=== PATIENT | female | born 1950 | race Caucasian/White ===

== ENCOUNTER → 2017-01-22 | Outpatient (CLI) | payer OTHER | LOC: FIMAGING 14:21 | PROVIDERS: ATTEND Internal Medicine | DX: M81.0 Age-related osteoporosis without current pathological fracture (principal) ==

== ENCOUNTER → 2017-02-19 | Outpatient (CLI) | payer OTHER | LOC: BMCIMAGING 14:55 | PROVIDERS: ATTEND Internal Medicine Endocrinology, Diabetes & Metabolism | DX: E04.1 Nontoxic single thyroid nodule (principal); E21.3 Hyperparathyroidism, unspecified | CPT/HCPCS: 76536-PO ==

== ENCOUNTER → 2017-03-04 | Outpatient (CLI) | payer OTHER | LOC: FIMAGING 11:55 | PROVIDERS: ATTEND Internal Medicine Endocrinology, Diabetes & Metabolism | DX: E21.3 Hyperparathyroidism, unspecified (principal) | CPT/HCPCS: 78070; A9500 ==

== ENCOUNTER → 2017-05-11 | Outpatient (CLI) | payer OTHER | LOC: FIMAGING 10:40 | PROVIDERS: ATTEND Physician Assistant | DX: Z12.31 Encounter for screening mammogram for malignant neoplasm of breast (principal); Z80.3 Family history of malignant neoplasm of breast | CPT/HCPCS: G0202 ==

== ENCOUNTER → 2018-07-13 | Outpatient (CLI) | payer OTHER | LOC: FIMAGING 09:15 | PROVIDERS: ATTEND Physician Assistant | DX: R13.10 Dysphagia, unspecified (principal); K44.9 Diaphragmatic hernia without obstruction or gangrene ==

== ENCOUNTER 2018-08-03 12:55 | Emergency (ER) | payer OTHER ==
[2018-08-03] MEDS ORDERED: fentaNYL 100 MCG/2 ML INJ IVP ONE (13:32)
[2018-08-03] MEDS ORDERED: LET GEL TOPICAL 1 EA SYR TP ONE (13:58)
--- NOTE | 2018-08-03 14:01 | EDPHY ---
HPI/HX/ROS/PE/MDM Narrative: CLINICAL IMPRESSION: Closed head injury, closed nasal bone fracture, concussion ASSESSMENT/PLAN: 67-year-old female presents to the emergency department with facial contusions and pain after a ground level fall just prior to arrival. Patient fell off 1 step while trying to load something in the back of her car, struck her face on the ground, and had a short period of loss of consciousness. She is alert, oriented, and without focal neurological deficits on exam. Vital signs stable. She was placed in a C-collar on arrival. CT head, cervical spine and maxillofacial bones show a closed, nasal bone fracture with no other acute intracranial abnormality, bleeding, or C-spine fracture or subluxation. C- collar removed by myself. Full range of motion the neck with no upper extremity radiculopathy. Tetanus up-to-date. Wound was cleaned and there was no suturable laceration. Had a long discussion with patient and her family regarding ENT follow-up for nasal bone fracture, home care and rice treatment. 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 Warning signs return to ED sooner outlined in person and discharge papers. DIFFERENTIAL DX: Differential includes but not limited to acute intracranial bleeding, facial bone fracture, C-spine fracture, skull fracture, facial contusions, nasal bone fracture. ED PROCEDURES: See imaging results below ED COURSE: CT results discussed with Radiology. DJD noted of the cervical spine, no acute findings on maxillofacial and CT head. C-collar removed by myself. Full range of motion of the neck with no upper extremity radiculopathy. Abrasion to bridge of nose with no suturable laceration. Nasal bone fracture on CT. No evidence of open fracture. No septal hematoma. 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 CHIEF COMPLAINT: Ground level fall, facial injury HPI: 67-year-old female presents to the emergency department by ambulance after sustaining a ground level fall. Patient states she was standing on a small step attempting to get a portable commode in the back of her car for a friend who recently had surgery. She lost her footing getting off the step and fell directly onto her face. She does not believe she had loss of consciousness but cannot be sure. She states she believes she broke her nose. She called for help and a bystander called EMS. She is complaining of nasal pain, headache, mild dizziness, and neck pain. No reported sensory loss or weakness to the arms or legs. No chest wall pain, back pain, abdominal pain. No reported dental or intraoral injury. She is not anticoagulated PMH: Bipolar, Asperger's, autism Pertinent Past Surgical History: Prior skull fracture and TBI Family History: None reported Social History: Nonsmoker, not anticoagulated REVIEW OF SYSTEMS: All other systems negative Constitutional: No fever, no chills, appetite change. Eyes: No discharge, vision change ENT: No sore throat, congestion, ear pain. Cardiovascular: No chest pain, no palpitations. Respiratory: No cough, no shortness of breath. Gastrointestinal: No abdominal pain, no vomiting, diarrhea. Genitourinary: No hematuria, dysuria, flank pain, pelvic pain Musculoskeletal: No back pain, joint swelling, joint pain, myalgias. Skin: Positive for nasal bone laceration, color change.] Neurological: Positive for headache, dizziness, denies weakness. PHYSICAL EXAM: General Appearance: Alert, oriented, appropriate, cooperative, NAD, well hydrated, non-toxic appearing, VSS, no hypoxia. HEENT: TMs are clear bilaterally no perforation or FB, no injection, no evidence of serous or mucopurulent otitis. No hemotympanum or Pryor sign. No obvious dental injury or dental avulsion, intraoral laceration, malocclusion, or midface instability to suggest LeFort fracture Oropharynx clear is no erythema or exudates, no tonsillar hypertrophy or asymmetry. Dentition without abnormality. Abrasion noted to the bridge of the nose with mild deformity noted. No septal hematoma or septal perforation. Eyes: PERRLA, no acute vision change, nystagmus, swelling, discharge, pain or photosensitivity. Conjunctiva pink, no pallor or injection Neck: Supple, nontender, no lymphadenopathy, midline pain to palpation. Range of motion limited by C-collar Respiratory: There are no retractions, lungs are clear to auscultation. No reproducible chest wall tenderness Cardiac: Regular rate and rhythm, no murmurs or gallops. Gastrointestinal: Abdomen is soft, nontender, bowel sounds normal, no masses/ hernia, no rigidity, guarding or focal peritoneal findings. No abdominal wall bruising Neurological: Alert and oriented x 3, CN 2-12 grossly intact, no limb ataxia, DTR's intact, normal sensation and strength Skin: See above Musculoskeletal: Extremities are symmetrical, full range of motion, no tenderness, deformity, swelling, or erythema. Psychiatric: Patient is oriented X 3, there is no agitation. MEDICAL DECISION MAKING: Patient was seen independently. Secondary supervising physician at time of evaluation was Dr. Cortez. Diagnosis: Nasal bone fracture, nasal bone abrasions, closed head injury, concussion . New, requires workup Summary: See Assessment and Plan for summary of ED visit Clinical lab tests: ordered / reviewed. Independent visualization of images, tracing, or specimens: Yes. Decision to obtain medical records or history from someone other than the patient: EMS Discussed patient with another provider: Radiology Patient Progress: Improved. - Data Points Imaging Results: Imaging Impressions Cervical Spine CT 08/03/18 13:31 Impression: 1. No acute posttraumatic abnormality identified. If there is persistent pain or neurologic deficit, consider MRI and/or flexion and extension views if clinically indicated. 2. Multilevel degenerative change and spondylolistheses. Findings discussed with Cassius Bentley 08/03/2018 at 14:47. Face CT 08/03/18 13:31 Impression: 1. Minimally displaced nasal bone fracture. 2. Additional findings as above. Head CT 08/03/18 13:31 Impression: 1. No acute intracranial findings. 2. Diffuse cerebral atrophy with periventricular and subcortical low attenuation consistent with chronic microvascular ischemic gliosis. 3. Bilateral encephalomalacia compatible with reported history of traumatic brain injury. Medications Given: Discontinued Medications Diphtheria/Tetanus/Acell Pertussis (Boostrix) 0.5 ml IM .ONCE ONE Stop: 08/03/18 14:19 Last Admin: 08/03/18 14:38 Dose: 0.5 ml Fentanyl (Sublimaze) 50 mcg IVP EDNOW ONE Stop: 08/03/18 13:33 Last Admin: 08/03/18 13:48 Dose: 50 mcg Tetracaine/Epinephrine/Lidocaine (Let Gel Topical) 1 ea TP EDNOW ONE Stop: 08/03/18 13:59 Last Admin: 08/03/18 14:10 Dose: 1 ea General Time Seen by Provider: 08/03/18 12:59 Initial Vital Signs: Initial Vital Signs Temperature (C) 36.5 C 08/03/18 13:03 Heart Rate 77 08/03/18 13:03 Respiratory Rate 18 08/03/18 13:03 Blood Pressure 168/85 H 08/03/18 13:03 O2 Sat (%) 99 08/03/18 13:03 O2 Delivery Mode Room Air Allergies/Adverse Reactions: amoxicillin Allergy (Verified 11/17/15 09:46) metronidazole [From Flagyl] Allergy (Verified 08/03/18 13:24) NSAIDS (Non-Steroidal Anti-Inflamma Allergy (Verified 11/17/15 09:46) oxcarbazepine [From Trileptal] Allergy (Verified 11/17/15 09:46) Penicillins Allergy (Verified 11/17/15 09:46) Sulfa (Sulfonamide Antibiotics) Allergy (Verified 11/17/15 09:46) Home Medications: Medication Instructions Recorded Divalproex ER [Depakote ER 500 MG 500 mg PO BID 11/12/15 (*)] Herbals/Supplements -Info Only 1 ea PO DAILY 11/12/15 LORazepam [Ativan (*)] 1 mg PO PRN PRN 11/12/15 Levothyroxine [Synthroid 50 mcg 50 mcg PO DAILY06 11/12/15 (*)] levOFLOXACIN [levAQUIN (*)] 750 mg PO DAILY #4 tab 11/14/15 metroNIDAZOLE [Flagyl 500 mg (*)] 500 mg PO BID #8 tab 11/14/15 Promethazine HCl [Phenergan] 25 mg PO Q4-6PRN PRN #10 tab 11/17/15 Zofran Odt 11/17/15 Departure - Departure Disposition: Home, Routine, Self-Care Clinical Impression: Closed head injury, Nasal bones, closed fracture, Concussion Condition: Good Instructions: Nasal Fracture (ED), Concussion (ED), Head Injury (ED) Additional Instructions: DISCHARGE INSTRUCTIONS FROM YOUR DOCTOR Thank you for visiting our emergency department today. Please keep in mind that discharge from the emergency department does not mean that there is nothing wrong - it simply means that we have not identified an emergency condition that requires further evaluation or treatment in the hospital. You should always plan to follow up with primary care for re-evaluation of your condition in the next 2-3 days. If you have been referred to a specialist, please call as soon as possible (today or tomorrow) to schedule your follow up appointment at the appropriate time. Please make a follow-up appoint with primary care and Ear Nose and Throat. You have a nasal bone fracture that may need reduction. Ice her face intermittently over the next several days. Apply antibiotic ointment to the abrasion on her nose. CT of the head and neck shows no acute fractures. The remainder of her facial bones are intact. Please avoid TV, video games, screen time, and contact sports until cleared by primary care provider. Please return to the emergency department immediately for severe headaches, severe dizziness or vertigo, seizure activity, altered mental status, unexplained vomiting, or any other concerns. It is okay to use Afrin in the nose for congestion over the next 3-4 days. People present with illnesses and injuries in different ways, and it is always possible that we have missed something. You may always return for re-evaluation if symptoms worsen or if they are not improving or if you develop new/different symptoms. Again, thank you for choosing our emergency department. We hope that you feel better. Referrals: Harry Calle PA [Primary Care Provider] - As per Instructions Miguelangel Thorne MD [Medical Doctor] - 2-3 days, call for appt.
[2018-08-03] MEDS ORDERED: TDAP ADULT 0.5 ML INJ (BOOSTRIX) IM ONE (14:18)
[2018-08-03 15:25] VITALS: BP 136/83
== END 2018-08-03 15:31 | disposition home or self-care (01) ==
LOC: EDUNIT#
DX: S06.0X0A Concussion without loss of consciousness, initial encounter (principal); S02.2XXA Fracture of nasal bones, initial encounter for closed fracture; S00.83XA Contusion of other part of head, initial encounter; W22.8XXA Striking against or struck by other objects, initial encounter; Y92.810 Car as the place of occurrence of the external cause; Y93.89 Activity, other specified; Y99.9 Unspecified external cause status; Z23 Encounter for immunization
CPT/HCPCS: 70450; 70486; 72125; 90471; 90715; 96374; 99285; J3010

== ENCOUNTER → 2018-10-18 | Outpatient (CLI) | payer OTHER | LOC: FIMAGING 15:48 | PROVIDERS: ATTEND Physician Assistant | DX: Z12.31 Encounter for screening mammogram for malignant neoplasm of breast (principal); Z80.3 Family history of malignant neoplasm of breast ==